=== PATIENT | female | born 1970 | race Caucasian/White ===

== ENCOUNTER 2020-07-03 06:54 | Emergency (ER) | payer MEDICARE, MEDICAID ==
[~2020-07-03] VITALS: Ht 165.1 cm; Wt 61.7 kg
[2020-07-03 06:57] VITALS: BP 167/107
[2020-07-03] MEDS ORDERED: PENI500T2 PO (07:19)
[2020-07-03] MEDS ORDERED: IBUP-1986 PO (07:19)
== END 2020-07-03 07:43 | disposition home or self-care (01) ==
LOC: ER 06:56
DX: K02.9 Dental caries, unspecified (principal); I10 Essential (primary) hypertension; G47.30 Sleep apnea, unspecified; F17.210 Nicotine dependence, cigarettes, uncomplicated; Z79.899 Other long term (current) drug therapy
CPT/HCPCS: 99283